=== PATIENT | male | born 1980 | race Caucasian/White ===

== ENCOUNTER → 2024-05-24 15:48 | Outpatient (CLI) | payer OTHER, SELFPAY ==
--- NOTE | 2024-05-24 15:53 | DI.RAD.S_ITS ---
PROCEDURE: FL BARIUM SWALLOW INDICATIONS: DYSPHAGIA COMPARISON: None. FINDINGS: Function: There is normal esophageal peristalsis. There was is severe gastroesophageal reflux. There was normal transit is a tablet from the mouth to the distal EG junction level and then the tablet would not into the stomach. This is evidence for narrowing at the distal EG junction which is less than 13 mm in size. There was a moderate size hiatus hernia demonstrated during the exam. The visualized stomach was normal. Morphology: Air-contrast images demonstrate normal mucosal morphology. Single contrast views show no esophageal strictures, extrinsic mass effects, or diverticula. Limited images of the stomach demonstrate normal appearance. IMPRESSION: Severe reflux with some moderate-sized hiatus hernia. Distal esophageal narrowing confirmed with 13 mm tablet. Dictated by: El Taylor M.D. on 05/24/2024 at 16:31 Approved by: El Taylor M.D. on 05/24/2024 at 16:36
== END ==
LOC: RAD 15:51
PROVIDERS: PCP Student in an Organized Health Care Education/Training Program; Referring Provider Student in an Organized Health Care Education/Training Program; Visit Provider Student in an Organized Health Care Education/Training Program
DX: K44.9 Diaphragmatic hernia without obstruction or gangrene (principal); R13.10 Dysphagia, unspecified
CPT/HCPCS: 74220